=== PATIENT | female | born 1970 | race Two or more races ===

== ENCOUNTER 2019-11-27 10:49 | Emergency (ER) | payer SELFPAY ==
[~2019-11-27] VITALS: Ht 157.5 cm; Wt 63.0 kg
[2019-11-27 11:16] VITALS: BP 151/88
[2019-11-27 13:28] LABS: CLARITY URINE CLEAR (CLEAR); COLOR URINE YELLOW (YELLOW); KETONES URINE TRACE (NEGATIVE); LEUKOCYTE ESTERASE URINE 2+ (NEGATIVE); NITRITE URINE NEGATIVE (NEGATIVE); OCCULT BLOOD URINE 1+ (NEGATIVE); PH URINE 5.5 (4.5-8.0); PROTEIN URINE NEGATIVE (NEGATIVE); SPECIFIC GRAVITY URINE 1.006 (1.005-1.030); UROBILINOGEN URINE 0.2 E.U./dL (0.2-1.0)
[2019-11-27] MEDS ORDERED: ACETAMINOPHEN 325MG TABLET PO STA (14:03)
== END 2019-11-27 14:32 | disposition home or self-care (01) ==
LOC: ER 10:49
DX: N39.0 Urinary tract infection, site not specified (principal); M79.18 Myalgia, other site; H11.32 Conjunctival hemorrhage, left eye; R51 Headache; R31.29 Other microscopic hematuria
CPT/HCPCS: 81003; 81025; 87804; 99283

== ENCOUNTER 2022-09-21 16:20 | Emergency (ER) | payer BC ==
[~2022-09-21] VITALS: Ht 160 cm; Wt 74.0 kg
[2022-09-21] MEDS ORDERED: HYDROCODONE/ACETAMINOPHEN 5/325MG TABLET PO ONE (19:30)
[2022-09-21] MEDS ORDERED: HYDROCODONE/ACETAMINOPHEN 5/325MG TABLET PO NR (22:45)
[2022-09-21 22:49] VITALS: BP 125/76
== END 2022-09-21 23:42 | disposition home or self-care (01) ==
LOC: ER 16:20
DX: T83.83XA Hemorrhage due to genitourinary prosthetic devices, implants and grafts, initial encounter (principal); R10.2 Pelvic and perineal pain; Y76.8 Miscellaneous obstetric and gynecological devices associated with adverse incidents, not elsewhere classified; Y92.538 Other ambulatory health services establishments as the place of occurrence of the external cause
CPT/HCPCS: 76830; 76856; 99284